=== PATIENT | female | born 2000 | race Hispanic/Latino ===

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

== ENCOUNTER 2021-02-03 00:40 | Emergency (ER) | payer BC, MEDICAID ==
[~2021-02-03] VITALS: Ht 149.9 cm; Wt 41.7 kg
[2021-02-03 00:42] VITALS: BP 120/80
[2021-02-03 00:58] VITALS: BP 107/59
[2021-02-03 01:24] LABS: BILIRUBIN,URINE Moderate (NEGATIVE); GLUCOSE, URINE (UA) Negative (NEGATIVE); KETONES,URINE Negative (NEGATIVE); LEUKOCYTE ESTERASE ,URINE Moderate (NEGATIVE); NITRATE,URINE Positive (NEGATIVE); OCCULT BLOOD,URINE Moderate (NEGATIVE); PROTEIN,URINE POS 1+ mg/dL (NEGATIVE)
[2021-02-03 01:27] LABS: APPEARANCE,URINE CLEAR (CLEAR); COLOR,URINE AMBER (YELLOW); HCG,QUAL RESULT NEGATIVE (NEGATIVE)
[2021-02-03 01:29] LABS: BASOPHILS % (AUTO) 0.5 % (0.0-5.0); EOSINOPHILS % (AUTO) 1.1 % (0.0-8.0); HEMATOCRIT 35.3 % (36-48); LYMPHOCYTES % (AUTO) 34.1 % (21.0-51.0); MEAN CORPUSCULAR HGB CONC 32.6 g/dL (32.0-36.0); MEAN CORPUSCULAR VOLUME 86.1 fL (80-100); MONOCYTES % (AUTO) 7.2 % (3.0-13.0); NEUTROPHILS % (AUTO) 56.8 % (40.0-77.0); PLATELET COUNT (AUTO) 295 K/uL (130-400); RED CELL DISTRIBUTION WIDTH 14.1 % (11.0-15.5); WHITE BLOOD COUNT (AUTO) 7.8 K/uL (4.8-10.8)
[2021-02-03 01:36] LABS: BACTERIA,URINE Rare /HPF (None Seen); MUCUS,URINE Rare LPF (None Seen)
[2021-02-03 01:50] LABS: ALBUMIN 4.1 g/dL (3.5-5.0); BILIRUBIN,TOTAL 0.2 mg/dL (0.2-1.0); CREATININE 0.7 mg/dL (0.5-1.5); POTASSIUM 3.3 mmol/L (3.5-5.1); TOTAL PROTEIN, SERUM 7.7 g/dL (6.0-8.3)
[2021-02-03 02:27] VITALS: BP 113/65
== END 2021-02-03 02:37 | disposition home or self-care (01) ==
LOC: EDH 00:40
DX: R55 Syncope and collapse (principal); Z79.899 Other long term (current) drug therapy
CPT/HCPCS: 36415; 80053; 81001; 81025; 85025; 87088; 93005

== ENCOUNTER 2021-08-30 23:43 | Emergency (ER) | payer BC, MEDICAID ==
[~2021-08-30] VITALS: Ht 149.9 cm; Wt 53.5 kg
[2021-08-30 23:47] VITALS: BP 110/47
== END 2021-08-31 00:35 | disposition left against medical advice (07) ==
LOC: EDH 23:43
DX: O26.91 Pregnancy related conditions, unspecified, first trimester (principal); R10.9 Unspecified abdominal pain; Z53.21 Procedure and treatment not carried out due to patient leaving prior to being seen by health care provider; Z3A.01 Less than 8 weeks gestation of pregnancy

== ENCOUNTER 2021-10-30 23:34 | Emergency (ER) | payer BC, MEDICAID ==
[~2021-10-30] VITALS: Ht 149.9 cm; Wt 54.4 kg
[2021-10-31 00:35] LABS: APPEARANCE,URINE CLEAR (CLEAR); BILIRUBIN,URINE NEGATIVE (NEGATIVE); COLOR,URINE YELLOW (YELLOW); GLUCOSE, URINE (UA) NEGATIVE (NEGATIVE); KETONES,URINE NEGATIVE (NEGATIVE); LEUKOCYTE ESTERASE ,URINE TRACE (NEGATIVE); NITRATE,URINE NEGATIVE (NEGATIVE); OCCULT BLOOD,URINE NEGATIVE (NEGATIVE); PROTEIN,URINE NEGATIVE (NEGATIVE); UROBILINOGEN,URINE 0.2 mg/dL (0.2-1.0)
[2021-10-31 00:43] LABS: HCG,QUAL RESULT POSITIVE (NEGATIVE)
[2021-10-31 00:47] LABS: AMORPHOUS SEDIMENT,UR Many /LPF (None Seen); BACTERIA,URINE Few /HPF (None Seen); RBC,URINE None Seen /HPF (0-1); SQUAMOUS EPITHELIAL CELL,UR Rare /HPF (0-2)
[2021-10-31] MEDS ORDERED: AZITHROMYCIN 250 MG TABLET PO ONE (01:30)
[2021-10-31 01:31] VITALS: BP 118/65
== END 2021-10-31 01:47 | disposition home or self-care (01) ==
LOC: EDH 23:34
DX: O98.311 Other infections with a predominantly sexual mode of transmission complicating pregnancy, first trimester (principal); Z3A.14 14 weeks gestation of pregnancy
CPT/HCPCS: 81001; 81025; 87486; 87797